=== PATIENT | female | born 1995 | race Caucasian/White ===

== ENCOUNTER → 2016-10-30 | Outpatient (CLI) | payer OTHER ==
[2016-10-30 15:57] LABS: CH 32.5; CHCM 34.2; HCT 40.1 % (34.0-46.0); HDW 2.54; HGB 13.4 gm/dL (11.4-16.0); MCH 31.9 pg (25.0-35.0); MCHC 33.4 g/dL (31.0-37.0); MCV 95.6 fL (80.0-100.0); Mean Platelet Volume 7.5; RBC 4.19 m/uL (3.80-5.40); RDW 12.6 % (11.5-15.5); WBC 10.7 k/uL (4.0-11.0)
== END | disposition home or self-care (01) ==
LOC: LABWHC1 14:29
PROVIDERS: ATTEND Obstetrics & Gynecology
DX: O26.812 Pregnancy related exhaustion and fatigue, second trimester (principal); Z3A.00 Weeks of gestation of pregnancy not specified
CPT/HCPCS: 36415; 82950; 84439; 84443; 85027

== ENCOUNTER → 2017-01-07 | Outpatient (CLI) | payer OTHER ==
--- NOTE | 2017-01-07 13:52 | US ---
EXAMINATION TYPE: US OB anatomy transabd DATE OF EXAM: 01/07/2017 1:10 PM COMPARISON: 1st trimester scan in pacs, prior anatomy scan done elsewhere, pt states no problems HISTORY: LGA TECHNIQUE: Transabdominal (TA) EXAM MEASUREMENTS: GESTATIONAL AGE / DATING Physician Established: (35 weeks/0 days) EDC: 02/11/2017 Dates by LMP: uncertain lmp Dates by First Scan: (35 weeks/0 days) EDC: 02/11/2017 Dates by Current Scan for: (34 weeks/6 days) EDC: 02/12/2017 SURVEY IUP: Single PLACENTA: Anterior PREVIA: No previa MIREILLE: 12.2 cm Normal CERVICAL LENGTH (transabdominal: norm > 3.0cm): 3.2 cm BIOMETRY PRESENTATION: Vertex LIE: Oblique BPD: 8.9 cm 35 weeks / 6 days HC: 31.6 cm 35 weeks / 3 days AC: 29.9 cm 33 weeks / 6 days FL: 6.6 cm 34 weeks / 1 days ESTIMATED WEIGHT IN GRAMS: 2394 grams ESTIMATED WEIGHT IN LBS/OZS: 5 lbs. 4 oz. WEIGHT PERCENTAGE BASED ON ESTABLISHED DATE: 27 % HC/AC: 1.06 FL/AC: 22 HEART RATE: 148 bpm RHYTHM: Normal ANATOMY SEEN (within normal limits): * * Cisterna Magna (< 1.1 cm) 0.5 cm * Cerebellum (varies with age) 4.8 cm Midline Falx Four Chamber Heart Stomach Nose / Lips Diaphragm Kidneys (bilateral) Bladder Cord Insert Three Vessel Cord Longitudinal Spine Transverse Spine ANATOMY NOT SEEN: Lateral Vent (< 1 cm) cm Arms (bilateral) Legs (bilateral) Situs Outflow tracts: LVOT/RVOT Choroid Plexus (bilateral) Cavus Septi Pellucidi viable iup, growth congruent with established dates, no abnormality seen on today's ultrasound, some exam limitations due to advanced age and lie IMPRESSION: CERDA FETUS PRESENT IN A VERTEX LIE WITH A GESTATIONAL AGE OF 34 WEEKS 6 DAYS +/- 3 WEEKS. ESTIMA IQRA DATE OF CONFINEMENT BASED ON THIS EXAMINATION IS 02/12/2017. PLEASE NOTE THAT THE MORPHOLOGIC EXAMINATION IS QUITE LIMITED.
== END | disposition home or self-care (01) ==
LOC: RADUSWWP 12:52
PROVIDERS: ATTEND Obstetrics & Gynecology
DX: O36.63X0 Maternal care for excessive fetal growth, third trimester, not applicable or unspecified (principal); Z3A.34 34 weeks gestation of pregnancy
CPT/HCPCS: 76811

== ENCOUNTER 2017-01-30 17:24 | Inpatient (IN) | payer OTHER ==
[2017-01-30] MEDS ORDERED: TERBUTALINE 1 MG/ML VIAL SQ PRN (19:19)
[2017-01-30] MEDS ORDERED: OXYTOCIN 10 UNIT/ML 1 ML VIAL IM PRN (19:19)
[2017-01-30] MEDS ORDERED: LIDOCAINE 1% (PF) 10 MG/ML (30 ML SDV) SQ PRN (19:19)
[2017-01-30] MEDS ORDERED: CARBOPROST TROMETHAMINE 250 MCG/ML 1 ML AMP IM PRN (19:19)
[2017-01-30] MEDS ORDERED: METHYLERGONOVINE 0.2 MG/ML 1 ML AMP IM PRN (19:19)
[2017-01-30] MEDS ORDERED: OXYTOCIN 30 UNITS/500 ML NS 30 UNIT in SALINE 1 500ML.BAG IV SCH (19:30)
[2017-01-30] MEDS ORDERED: LACTATED RINGERS 1,000 ML IV SCH (19:30)
[2017-01-30 19:57] LABS: Basophils # (A) 0.1 k/uL (0-0.2); Basophils % (A) 0 %; CH 32.2; CHCM 34.1; Eosinophils # (A) 0.1 k/uL (0-0.7); Eosinophils % (A) 0 %; HCT 41.3 % (34.0-46.0); HDW 2.63; HGB 13.8 gm/dL (11.4-16.0); Luc # (Auto) 0.55; Luc % (Auto) 4; Lymphocytes # (A) 2.4 k/uL (1.0-4.8); Lymphocytes % (A) 16 %; MCH 31.8 pg (25.0-35.0); MCHC 33.5 g/dL (31.0-37.0); MCV 94.9 fL (80.0-100.0); Mean Platelet Volume 7.8; Monocytes # (A) 0.6 k/uL (0-1.0); Monocytes % (A) 4 %; Neutrophils # (A) 10.9 k/uL (1.3-7.7); Neutrophils % (A) 75 %; RBC 4.35 m/uL (3.80-5.40); RDW 13.3 % (11.5-15.5); WBC 14.6 k/uL (4.0-11.0); WBC (Perox) 14.73
[2017-01-30] MEDS ORDERED: BUPIVACAINE (PF) 0.25% 30 ML VIAL ONE (20:28)
[2017-01-30] MEDS ORDERED: SODIUM CHLORIDE 0.9% 100 ML BAG ONE (20:28)
[2017-01-30] MEDS ORDERED: fentaNYL (PF) 50 MCG/ML 5 ML AMP ONE (20:28)
--- NOTE | 2017-01-30 20:41 | P.HPOB ---
History of Present Illness H&P Date: 01/30/17 Chief Complaint: contractions and decreased movement. This patient is a pleasant 21-year-old 1 para 0 female estimated date of confinement 02/11/2017 who presents with complaints of contractions throughout the day and decreased movement. Patient was seen in the office by Devi yesterday and was 2 cm dilated she is now 3-4 cm dilated thought to be in active labor. Patient's care is per Dr. Higgins. Review of Systems Constitutional: Denies chills, Denies fever Ears, nose, mouth and throat: Denies headache, Denies sore throat Cardiovascular: Denies chest pain, Denies shortness of breath Respiratory: Denies cough Gastrointestinal: Reports heartburn Genitourinary: Reports Menstruation: Reports amenorrhea Musculoskeletal: Denies myalgias Integumentary: Denies pruritus, Denies rash Neurological: Denies numbness, Denies weakness Psychiatric: Denies anxiety, Denies depression Past Medical History Past Medical History: No Reported History History of Any Multi-Drug Resistant Organisms: None Reported Past Surgical History: Adenoidectomy Past Anesthesia/Blood Transfusion Reactions: No Reported Reaction Past Psychological History: No Psychological Hx Reported Smoking Status: Current every day smoker Past Alcohol Use History: None Reported Past Drug Use History: None Reported Medications and Allergies Home Medications Medication Instructions Recorded Confirmed Type Pnv with Ca,No.72/Iron/FA 1 tab PO DAILY 12/16/16 01/30/17 History [ Plus Tablet] Allergies Allergy/AdvReac Type Severity Reaction Status Date / Time codeine Allergy Rash/Hives Verified 01/30/17 17:39 Exam - Vital Signs Vital signs: Vital Signs Temp Pulse Resp BP Pulse Ox 01/30/17 17:45 96.5 F L 102 H 20 138/69 97 Intake and Output 01/30/17 01/30/17 01/30/17 06:59 14:59 22:59 Other: Weight 75.296 kg Patient Weight 01/31/17 06:59 Weight 75.296 kg - OBG Physical Exam Abdomen: bowel sounds normal, no diffuse tenderness, no bruit present, no guarding noted, no hepatomegaly, no splenomegaly, no mass Vulva: both: normal Vagina: normal moisture, no discharge Cervix: cervix is 3-4 cm dilated -2 station. Results blood work shows she is A positive, rubella nonimmune, RPR is nonreactive, HIV is nonreactive, group B strep was negative. Ultrasounds have been normal. Result Diagrams: 01/30/17 19:30 Abnormal Lab Results - Last 24 Hours (Table) 01/30/17 Range/Units 19:30 WBC 14.6 H (4.0-11.0) k/uL Neutrophils # 10.9 H (1.3-7.7) k/uL Assessment and Plan (1) Third trimester Narrative/Plan: This is a 21-year-old 1 para 0 female 38-2/7 weeks gestation who is admitted in active labor. Plan is anticipate normal vaginal delivery. Status: Acute (2) Normal labor Status: Acute
--- NOTE | 2017-01-30 20:45 | P.MSEPDOC ---
Presenting Problems - Arrival Data Date of Arrival on Unit: 01/30/17 Time of Arrival on Unit: 17:24 Mode of Transport: Ambulatory - Complaint OB-Reason for Admission/Chief Complaint: Decreased Movement Medical History - Information : 1 Para: 0 Term: 0 : 0 Abortions: Spontaneous or Elective: 0 Number of Living Children: 0 - Gestational Age Expected Date of Delivery: 02/11/17 Gestational Age by YIMI (wks/days): 38 Weeks and 2 Days - History Complications: Smoker Review of Systems - Review of Systems Constitutional: No problems Breast: No problems ENT: No problems Cardiovascular: No problems Respiratory: No problems Gastrointestinal: No problems Genitourinary: No problems Musculoskeletal: No problems Neurological: No problems Skin: No problems Vital Signs - Temperature Temperature: 96.5 F Temperature Source: Skin - Pulse Brachial Pulse Rate: 102 Pulse Assessment Method: Automatic Cuff - Respirations Respiratory Rate: 20 Oxygen Delivery Method: Room Air O2 Sat by Pulse Oximetry: 97 - Blood Pressure Right Arm Blood Pressure: 138/69 Blood Pressure Mean: 92 Blood Pressure Source: Automatic Cuff Medical Screen Scoring (Pre) - Cervical Exam Dilation: 1-3 cm = 1 Effacement: More than 50% = 2 Membranes: Intact - Uterine Contractions Frequency: > 5 minutes apart = 1 Duration: > 40 seconds = 2 - Maternal Vital Signs Maternal Temperature: N/A Maternal Blood Pressure: N/A Signs of Preeclampsia: N/A Maternal Respirations: N/A - Maternal Trauma Maternal Trauma: N/A - Assessment Baseline FHR: 150 Heart Rate - NICHD Category: Category I (Normal) = 0 - Total Score Total Score (Pre): 6 Physician Notification (Pre) - Physician Notified Physician Notified Date: 01/30/17 Physician Notified Time: 18:45 Physician/Practitioner Notifed:: dr mcgrath Spoke With: dr mcgrath Disposition - Disposition OB Disposition: Admit, LDRP Suite Transferred to:: st 14 I agree with the RN Medical Screening Exam: Yes Risk & Benefit of care provided described in d/c instruction: Yes Diagnosis: 38 WEEKS GESTATION OF
[2017-01-30] MEDS ORDERED: BUPIVACAINE (PF) 0.25% 25 ML, fentaNYL (PF) 200 MCG in SODIUM CHLORIDE 0.9% 71 ML EPIDURAL ONE (20:46)
[2017-01-30] MEDS ORDERED: SUCCINYLCHOLINE CHLORIDE 100 MG/5 ML SYR IV ONE (21:03)
[2017-01-30] MEDS ORDERED: KETOROLAC 30 MG/ML 1 ML VIAL ONE (21:03)
[2017-01-30] MEDS ORDERED: DEXAMETHASONE SOD PHOS (MDV) 100 MG/10 ML VIAL ONE (21:03)
[2017-01-30] MEDS ORDERED: MIDAZOLAM 2 MG/2 ML VIAL ONE (21:03)
[2017-01-30] MEDS ORDERED: ONDANSETRON 4 MG/2 ML VIAL ONE (21:03)
[2017-01-30] MEDS ORDERED: PROPOFOL 10 MG/ML 20 ML VIAL IV ONE (21:03)
[2017-01-30] MEDS ORDERED: OXYTOCIN 10 UNIT/ML 1 ML VIAL IM ONE (21:03)
[2017-01-30] MEDS ORDERED: ceFAZolin 1,000 MG VIAL ONE (21:03)
[2017-01-30] MEDS ORDERED: fentaNYL (PF) 50 MCG/ML 2 ML AMP ONE (21:03)
[2017-01-30] MEDS ORDERED: diphenhydrAMINE 25 MG CAP PO PRN (21:50)
[2017-01-30] MEDS ORDERED: diphenhydrAMINE 50 MG/ML 1 ML VIAL IVP PRN (21:50)
[2017-01-30] MEDS ORDERED: METOCLOPRAMIDE 5 MG/ML 2 ML VIAL IVP PRN (21:50)
[2017-01-30] MEDS ORDERED: SIMETHICONE 80 MG CHEWABLE PO PRN (21:50)
[2017-01-30] MEDS ORDERED: ACETAMINOPHEN TAB 325 MG TAB PO PRN (21:50)
[2017-01-30] MEDS ORDERED: ONDANSETRON 4 MG/2 ML VIAL IVP PRN (21:50)
[2017-01-30] MEDS ORDERED: KETOROLAC 30 MG/ML 1 ML VIAL IVP PRN (21:50)
[2017-01-30] MEDS ORDERED: HYDROmorphone PCA 5 MG/25 ML SYRINGE IV PRN (21:50)
[2017-01-30] MEDS ORDERED: NALOXONE 0.4 MG/ML 1 ML VIAL IV PRN (21:50)
[2017-01-30] MEDS ORDERED: MEASLES-MUMPS-RUBELLA VACC/PF 12,500 UNIT/0.5 ML VIAL SQ ONE (21:50)
[2017-01-30] MEDS ORDERED: ZOLPIDEM 5 MG TAB PO PRN (21:50)
--- NOTE | 2017-01-30 21:52 | XR ---
EXAMINATION TYPE: XR abdomen 1V DATE OF EXAM: 01/30/2017 9:45 PM COMPARISON: NONE HISTORY: Possible foreign body TECHNIQUE: Single view FINDINGS: There are skin nasim. Bowel gas pattern is normal. There is no sign of intestinal obstruc tion. There is no sign of a radiopaque foreign body. Fecal pattern is normal. IMPRESSION: No sign of a foreign body. Nonacute abdomen.
--- NOTE | 2017-01-30 22:08 | P.OP ---
Date of Procedure: 01/30/17 Preoperative Diagnosis: 1:38-2/7 weeks gestation. #2: Labor #3: Nonreassuring heart tones remote from delivery. Postoperative Diagnosis: #1: Same. #2: Occult cord prolapse. Procedure(s) Performed: Emergent low transverse section Anesthesia: JOLEEN Surgeon: Hamilton Ervin Estimated Blood Loss (ml): 500 Pathology: other (Placenta) Condition: stable Disposition: floor Indications for Procedure: Please see dictated H&P for intimate details of this patient's admission. Brief summary this is a 21-year-old 1 para 0 female 38-2/7 weeks gestation who called the office earlier today with complaints of decreased movement. Patient is admitted to labor and delivery and found to be in early labor. Patient artificial rupture membranes for clear fluid at about 4-5 cm dilated. Patient an epidural placed at this time. Patient began having bradycardic episodes that did not respond to position changes and heart tones remained in the 80s to 90s without resolution. At this time I recommend the patient proceed with emergent section for delivery. Operative Findings: This is a vigorous viable male infant Apgars 9 and 9 delivery time is 2110 hrs. , a piece of the umbilical cord was found right against the side of the head. This is consistent with an occult cord prolapse. Description of Procedure: this patient has a Bhatia catheter placed to straight drain. She's quickly taken to the operating room where she is laid in the supine position. She has abdominal prep and drape. Patient goes under rapid sequence general endotracheal anesthesia. With a adequate level of anesthesia, scalpel is taken and a Pfannenstiel skin incision is made. A second scalpel is taken down the fascia and the fascia scored with scalpel. Fascial incision extended bilaterally using the Alvarez scissors. Fascia is dissected off the rectus muscles sharply. Rectus muscles are the peritoneum identified and entered sharply. Peritoneal incision was bluntly extended. The bladder blade is placed. Bladder peritoneum was taken off the lower uterine segment sharply. Bladder blade is placed. Scalpels taken low transverse uterine incision is made and using a hemostat I into the uterine cavity bluntly. This incision is extended bluntly. Immediately I note a piece of the umbilical cord that is trapped against the head. The 's head is then guided through the incision. There is no evidence of nuchal cord. Mouth and nares are bulb suctioned. There delivery rest this 's body. This is a vigorous viable male Apgars are 9 and 9 delivery time is 2110 hrs. After delivery of the the umbilical cord is doubly clamped and cut is handed off to the nurses in attendance. The placenta is then manually extracted intact. The uterus is then externalized. Uterine incision demarcated with Mills clamps. Uterine incision then closed using 0 Vicryl running locked fashion 2 layers. The bladder peritoneum was then reapproximated using a 3-0 Vicryl. Excellent hemostasis is noted. Uterus tubes and ovaries appear normal for term gestation. Excess fluid is removed from the abdomen and pelvis. Uterus placed back into the abdomen. Parietal peritoneum was then closed using a 3-0 Vicryl running fashion. Rectus muscles reapproximated using 0 Vicryl interrupted fashion. Fascia is then closed using 0 PDS in a running fashion. Fascial incision is intact and hemostatic. Subcutaneous tissues and closed using a 3-0 Vicryl. Skin is and closed using nasim. Counts are correct at this time however we did not have time to do a preoperative count due to the emergent nature of the surgery, therefore at this time a flatplate of the abdomen is done and there is no evidence of any retained instruments or sponges. At this point the patient is awakened from anesthesia and sterile dressing is applied. There are no complications. Infant and mother are stable delivery room.
[2017-01-31 00:22] VITALS: BMI 28.3
[2017-01-31] MEDS: LACTATED RINGERS 1,000 ML IV SCH ×3 (05:00→12:59)
[2017-01-31] MEDS ORDERED: HYDROcodone/APAP 5-325MG 1 EACH TAB PO PRN (05:41)
--- NOTE | 2017-01-31 05:43 | P.PNOBGPC ---
Subjective - Subjective Patient reports: Reports appetite normal, Reports voiding normally, Reports pain well controlled, Reports ambulating normally : doing well Objective - Vital Signs Latest vital signs: Vital Signs Temp Pulse Resp BP Pulse Ox 01/31/17 04:00 98.5 F 73 16 115/68 01/31/17 00:00 98.0 F 99 18 127/55 01/30/17 23:50 98.1 F 96 16 120/59 01/30/17 23:15 98.1 F 90 16 126/66 01/30/17 22:45 75 16 125/64 01/30/17 22:30 98.1 F 96 16 124/62 01/30/17 22:15 92 16 122/62 01/30/17 22:00 97.7 F 108 H 20 117/57 01/30/17 21:45 96.4 F L 141 H 18 129/60 01/30/17 20:45 96.5 F L 102 H 20 138/69 97 01/30/17 20:00 78 18 135/83 01/30/17 17:45 96.5 F L 102 H 20 138/69 97 Intake and Output 01/30/17 01/30/17 01/31/17 14:59 22:59 06:59 Intake Total 620 520 Output Total 500 Balance 120 520 Intake: Intake, IV Titration 500 400 Amount Bupivacaine (Pf) 0.25% 25 400 ml fentaNYL (PF) 200 mcg In Sodium Chloride 0.9% 71 ml @ Titrate EPIDURAL ONCE ONE Rx#:[id number] Oxytocin 30 Units/500 ml 500 Ns 30 unit In Saline 1 500ml.bag @ 1 MILLIUNIT/ MIN 1 mls/hr IV .[facility] Rx#:[id number] Oral 120 120 Output: Estimated Blood Loss 500 Other: Weight 74.843 kg Patient Weight 01/31/17 06:59 Weight 74.843 kg - Exam Lungs: bilateral: normal Chest: Normal S1, Normal S2 Extremities: Present: normal Abdomen: Present: normal appearance, soft. Absent: distention, tenderness Incision: Present: normal, dry, intact Uterus: Present: normal, firm - Labs Labs: Abnormal Lab Results - Last 24 Hours (Table) 01/30/17 Range/Units 19:30 WBC 14.6 H (4.0-11.0) k/uL Neutrophils # 10.9 H (1.3-7.7) k/uL Assessment and Plan (1) Third trimester Narrative/Plan: Postoperative day #1. Patient is resting without complaints. Vital signs are stable and she is afebrile. Uterus is firm nontender and her incision is intact and dry. CBC is pending at this time. My impression is a normal postoperative course. Plan is to advance her diet, check a CBC, ambulate, and allow the patient to shower. Current Visit: Yes Status: Acute Code(s): Z33.1 - STATE, INCIDENTAL SNOMED Code(s): 83155779 (2) Normal labor Current Visit: Yes Status: Acute Code(s): O80 - ENCOUNTER FOR FULL-TERM UNCOMPLICATED DELIVERY; Z37.9 - OUTCOME OF DELIVERY, UNSPECIFIED SNOMED Code(s ): 59316446
[2017-01-31 07:40] LABS: Basophils % (A) 0 %; CH 32.1; CHCM 34.3; Eosinophils % (A) 0 %; HDW 2.67; HGB 12.5 gm/dL (11.4-16.0); Luc # (Auto) 0.55; Luc % (Auto) 3; Lymphocytes % (A) 5 %; MCH 32.8 pg (25.0-35.0); MCHC 34.9 g/dL (31.0-37.0); Mean Platelet Volume 7.7; Monocytes # (A) 0.8 k/uL (0-1.0); Monocytes % (A) 4 %; Neutrophils # (A) 17.7 k/uL (1.3-7.7); Neutrophils % (A) 88 %; RBC 3.82 m/uL (3.80-5.40); RDW 12.7 % (11.5-15.5); WBC 20.1 k/uL (4.0-11.0); WBC (Perox) 21.07
[2017-01-31] MEDS: ceFAZolin 2 GM in SODIUM CHLORIDE 0.9% 100 ML IVPB SCH ×3 (07:49→10:00)
[2017-01-31 08:32] LABS: Manual Review Performed
[2017-01-31 08:36] LABS: RBC Morphology Normal
[2017-01-31] MEDS: SENNOSIDES-DOCUSATE SODIUM 1 EACH TAB PO SCH ×2 (08:48→21:03)
[2017-01-31] MEDS: HYDROcodone/APAP 5-325MG 1 EACH TAB PO PRN ×3 (12:39→23:02)
[2017-02-01] MEDS: LACTATED RINGERS 1,000 ML IV SCH (00:05)
[2017-02-01] MEDS: IBUPROFEN 600 MG TAB PO PRN ×3 (02:28→18:15)
--- NOTE | 2017-02-01 05:39 | P.PNOBGPC ---
Subjective - Subjective Patient reports: Reports appetite normal, Reports voiding normally, Reports pain well controlled, Reports ambulating normally : doing well Objective - Vital Signs Latest vital signs: Vital Signs Temp Pulse Resp BP Pulse Ox 02/01/17 00:00 97.4 F L 66 16 119/69 98 01/31/17 16:00 98 F 80 16 105/57 97 01/31/17 11:55 98.0 F 75 16 122/64 97 01/31/17 08:13 97.6 F 65 12 106/61 96 Intake and Output 01/31/17 01/31/17 02/01/17 14:59 22:59 06:59 Output Total 1900 Balance -1900 Output: Urine 1900 Other: # Voids 1 2 - Exam Lungs: bilateral: normal Chest: Normal S1, Normal S2 Extremities: Present: normal Abdomen: Present: normal appearance, soft. Absent: distention, tenderness Incision: Present: normal, dry, intact Uterus: Present: normal, firm - Labs Labs: Abnormal Lab Results - Last 24 Hours (Table) 01/31/17 Range/Units 06:35 WBC 20.1 H (4.0-11.0) k/uL Neutrophils # 17.7 H (1.3-7.7) k/uL Assessment and Plan (1) Third trimester Narrative/Plan: day #2. Patient is resting without complaints. Vital signs are stable she's afebrile. Uterus is firm nontender her incision is intact and dry. Patient is tolerating regular diet. Patient is urinating without difficulty. Plan today is to continue routine postoperative care and most likely discharge home tomorrow. Current Visit: Yes Status: Acute Code(s): Z33.1 - STATE, INCIDENTAL SNOMED Code(s): 82141578 (2) Normal labor Current Visit: Yes Status: Acute Code(s): O80 - ENCOUNTER FOR FULL-TERM UNCOMPLICATED DELIVERY; Z37.9 - OUTCOME OF DELIVERY, UNSPECIFIED SNOMED Code(s ): 36914483
[2017-02-01] MEDS: SENNOSIDES-DOCUSATE SODIUM 1 EACH TAB PO SCH ×2 (07:43→19:52)
[2017-02-01] MEDS: HYDROcodone/APAP 5-325MG 1 EACH TAB PO PRN ×3 (07:46→19:52)
[2017-02-01 08:32] LABS: Basophils % (A) 0 %; CH 31.9; CHCM 33.7; Eosinophils # (A) 0.1 k/uL (0-0.7); Eosinophils % (A) 1 %; HCT 36.3 % (34.0-46.0); HDW 2.58; HGB 11.8 gm/dL (11.4-16.0); Luc # (Auto) 0.49; Luc % (Auto) 4; Lymphocytes # (A) 2.3 k/uL (1.0-4.8); Lymphocytes % (A) 18 %; MCHC 32.5 g/dL (31.0-37.0); MCV 95.2 fL (80.0-100.0); Mean Platelet Volume 7.4; Monocytes # (A) 0.7 k/uL (0-1.0); Monocytes % (A) 6 %; Neutrophils # (A) 9.5 k/uL (1.3-7.7); Neutrophils % (A) 72 %; RBC 3.81 m/uL (3.80-5.40); WBC 13.1 k/uL (4.0-11.0); WBC (Perox) 13.97
[2017-02-02] MEDS: IBUPROFEN 600 MG TAB PO PRN ×2 (03:24→11:05)
--- NOTE | 2017-02-02 06:31 | P.PNOBGPC ---
Subjective - Subjective Patient reports: Reports appetite normal, Reports voiding normally, Reports pain well controlled, Reports ambulating normally : doing well Objective - Vital Signs Latest vital signs: Vital Signs Temp Pulse Resp BP BP Pulse Ox 02/02/17 00:00 98.5 F 78 16 111/52 02/01/17 16:00 98.3 F 78 16 118/55 96 02/01/17 12:00 97 F L 81 18 120/59 97 02/01/17 08:00 98.0 F 78 14 113/62 97 - Exam Lungs: bilateral: normal Chest: Normal S1, Normal S2 Extremities: Present: normal Abdomen: Present: normal appearance, soft. Absent: distention, tenderness Incision: Present: normal, dry, intact Uterus: Present: normal, firm - Labs Labs: Abnormal Lab Results - Last 24 Hours (Table) 02/01/17 Range/Units 08:06 WBC 13.1 H (4.0-11.0) k/uL Neutrophils # 9.5 H (1.3-7.7) k/uL Assessment and Plan (1) Third trimester Narrative/Plan: Postoperative day #3. Patient is resting without complaints. Vital signs are stable she is afebrile. Uterus is firm nontender she's having normal lochia. Incision is intact and dry. CBC is normal. My impression is this patient is having an normal course. She appears to be stable for discharge home. We'll continue routine care and discharge home later today. Current Visit: Yes Status: Acute Code(s): Z33.1 - STATE, INCIDENTAL SNOMED Code(s): 57723141 (2) Normal labor Current Visit: Yes Status: Acute Code(s): O80 - ENCOUNTER FOR FULL-TERM UNCOMPLICATED DELIVERY; Z37.9 - OUTCOME OF DELIVERY, UNSPECIFIED SNOMED Code(s ): 19736952
--- NOTE | 2017-02-02 06:33 | P.DS ---
Providers Date of admission: 01/30/17 19:08 Expected date of discharge: 02/02/17 Attending physician: Hamilton Ervin Primary care physician: Estefanía Higgins - Discharge Diagnosis(es) (1) Third trimester Current Visit: Yes Status: Acute (2) Normal labor Current Visit: Yes Status: Acute Hospital Course: Please see dictated H&P in this patient's admission. Brief summary this is a pleasant 21-year-old 1 para 0 female 38-2/7 weeks gestation who is admitted to labor and delivery with complaints of decreased movement and contractions. Patient subsequently underwent a emergent low transverse section for nonreassuring heart tones. Postoperatively patient did well and on postoperative 3 felt be stable for discharge home follow up with Dr. Higgins in 1 week. Procedures: Primary low transverse section. Patient Condition at Discharge: Good Plan - Discharge Summary New Discharge Prescriptions: HYDROcodone/APAP 5-325MG [[place] 5-325] 1 - 2 each PO Q4HR PRN #40 tab PRN Reason: Pain Ibuprofen [Motrin] 600 mg PO Q6HR PRN #40 tab PRN Reason: Mild Pain Or Fever >= 100.5 Discharge Medication List Pnv with Ca,No.72/Iron/FA [ Plus Tablet] 1 tab PO DAILY 12/16/16 [ History] HYDROcodone/APAP 5-325MG [[place] 5-325] 1 - 2 each PO Q4HR PRN #40 tab 02/01/17 [ Rx] Ibuprofen [Motrin] 600 mg PO Q6HR PRN #40 tab 02/01/17 [Rx] Follow up Appointment(s)/Referral(s): Estefanía Higgins DO [Primary Care Provider] - 02/07/17 1:30 pm (Patient also has a check with Dr. Higgins on March 15 at 10:45 AM.) Patient Instructions/Handouts: (DC) Activity/Diet/Wound Care/Special Instructions: No heavy lifting or strenuous activity for 6 weeks. No intercourse or anything per vagina for 6 weeks. Please call if any fever, chills, excessive vaginal bleeding, and/or abdominal pain. Discharge Disposition: HOME SELF-CARE
[2017-02-02] MEDS: HYDROcodone/APAP 5-325MG 1 EACH TAB PO PRN (06:41)
[2017-02-02] MEDS: SENNOSIDES-DOCUSATE SODIUM 1 EACH TAB PO SCH (11:04)
[2017-02-02 12:11] VITALS: RESP 20
[2017-02-02 13:26] VITALS: BP 119/57; PULSE 86; TEMP 97.7
== END 2017-02-02 11:45 | disposition home or self-care (01) | DRG 766 ==
LOC: FBPOP 17:24 → 4FBP 19:08
PROVIDERS: ADMIT Obstetrics & Gynecology; ATTEND Obstetrics & Gynecology
PROC: 3E0134Z Introduction of Serum, Toxoid and Vaccine into Subcutaneous Tissue, Percutaneous Approach (ICD-10-PCS; 2017-01-30)
PROC: 10D00Z1 Extraction of Products of Conception, Low, Open Approach (ICD-10-PCS; principal; 2017-01-30 21:00)
DX: O36.8190 Decreased fetal movements, unspecified trimester, not applicable or unspecified (principal); F17.200 Nicotine dependence, unspecified, uncomplicated; O69.0XX0 Labor and delivery complicated by prolapse of cord, not applicable or unspecified; O76 Abnormality in fetal heart rate and rhythm complicating labor and delivery; O99.334 Smoking (tobacco) complicating childbirth; Z3A.38 38 weeks gestation of pregnancy; Z37.0 Single live birth; Z23 Encounter for immunization
CPT/HCPCS: 59025; 74000; 80306; 85025; 88307; 90471; 90707; 99213

== ENCOUNTER 2024-08-19 23:48 | Emergency (ER) | payer OTHER ==
[2024-08-19 23:56] VITALS: TEMP 98.3
[2024-08-20] MEDS: SODIUM CHLORIDE 0.9% 1,000 ML IV ONE (00:41)
[2024-08-20] MEDS: ONDANSETRON 4 MG/2 ML VIAL IVP STA (00:43)
[2024-08-20] MEDS: KETOROLAC 15 MG/ML 1 ML VIAL IVP STA (00:46)
[2024-08-20] MEDS: ORPHENADRINE 30 MG/ML 2 ML VIAL IVP STA (02:30)
[2024-08-20] MEDS: LORazepam 2 MG/ML INJ IV STA (03:38)
--- NOTE | 2024-08-20 04:03 | ED ---
General Adult HPI - General Chief complaint: Recheck/Abnormal Lab/Rx Stated complaint: Weakness Time Seen by Provider: 08/20/24 00:02 Source: patient Mode of arrival: ambulatory Limitations: no limitations - History of Present Illness Initial comments: 29-year-old female presenting with chief complaint of withdrawals from Kratom. Patient was taking large amounts of the substance for the past 3 months. She found out that the substances similar to an opioid and stopped taking it 2 days ago. Patient states that "everything hurts". She is having diarrhea as well. Some nausea no vomiting. No chest pain or difficulty breathing. No fevers. - Related Data Home Medications Medication Instructions Recorded Confirmed Pnv,Calcium 72/Iron/Folic Acid 1 tab PO DAILY 12/16/16 01/30/17 [ Plus Tablet] Previous Rx's Medication Instructions Recorded HYDROcodone/APAP 5-325MG [[place] 1 - 2 each PO Q4HR PRN #40 tab 02/01/17 5-325] Ibuprofen [Motrin] 600 mg PO Q6HR PRN #40 tab 02/01/17 hydrOXYzine HCL 25 mg PO Q8HR PRN #10 tab 08/20/24 Allergies Allergy/AdvReac Type Severity Reaction Status Date / Time codeine Allergy Rash/Hives Verified 08/19/24 23:51 Review of Systems ROS Statement: Those systems with pertinent positive or pertinent negative responses have been documented in the HPI. ROS Other: All systems not noted in ROS Statement are negative. Past Medical History Past Medical History: No Reported History History of Any Multi-Drug Resistant Organisms: None Reported Past Surgical History: Adenoidectomy, Section Past Anesthesia/Blood Transfusion Reactions: No Reported Reaction Past Psychological History: No Psychological Hx Reported Smoking Status: Vaper Past Alcohol Use History: None Reported, Occasional Past Drug Use History: Opiates General Exam Limitations: no limitations General appearance: alert, in no apparent distress Head exam: Present: atraumatic, normocephalic, normal inspection Eye exam: Present: normal appearance, EOMI Neck exam: Present: normal inspection. Absent: meningismus Respiratory exam: Present: normal lung sounds bilaterally. Absent: respiratory distress, wheezes, rales, rhonchi, stridor Cardiovascular Exam: Present: regular rate, normal rhythm, normal heart sounds. Absent: systolic murmur, diastolic murmur, rubs, gallop, clicks Neurological exam: Present: alert, oriented X3 Psychiatric exam: Present: normal affect, normal mood. Absent: homicidal ideation, suicidal ideation Skin exam: Present: warm, dry Course Vital Signs 08/19/24 23:51 Temperature 98.3 F Pulse Rate 97 Respiratory 16 Rate Blood Pressure 139/90 O2 Sat by Pulse 98 Oximetry Medical Decision Making - Medical Decision Making Was pt. sent in by a medical professional or institution (JAIME Sheridan, HYDRAULIC LIFT DRIVER, urgent care, hospital, or assisted...) When possible be specific @ -No Did you speak to anyone other than the patient for history (EMS, parent, family, police, friend...)? What history was obtained from this source @ -No Did you review nursing and triage notes (agree or disagree)? Why? @ -I reviewed and agree with nursing and triage notes Were old charts reviewed (outside hosp., previous admission, EMS record, old EKG, old radiological studies, urgent care reports/EKG's, assisted records)? Report findings @ -No old charts were reviewed Differential Diagnosis (chest pain, altered mental status, abdominal pain women, abdominal pain men, vaginal bleeding, weakness, fever, dyspnea, syncope, headache, dizziness, GI bleed, back pain, seizure, CVA, palpatations, mental health, musculoskeletal)? @ -Differential includes withdrawal syndrome, viral syndrome, mononucleosis, this is not an all-inclusive list EKG interpreted by me (3pts min.). @ -As above X-rays interpreted by me (1pt min.). @ -None done CT interpreted by me (1pt min.). @ -None done U/S interpreted by me (1pt. min.). @ -None done What testing was considered but not performed or refused? (CT, X-rays, U/S, labs)? Why? @ -None What meds were considered but not given or refused? Why? @ -None Did you discuss the management of the patient with other professionals (professionals i.e. JAIME Sheridan, HYDRAULIC LIFT DRIVER, lab, RT, psych nurse, community mental health social worker, diversified crops i farmworker, teacher, title officer, rn case management)? Give summary @ -No Was smoking cessation discussed for >3mins.? @ -No Was critical care preformed (if so, how long)? @ -No Were there social determinants of health that impacted care today? How? (Homelessness, low income, unemployed, alcoholism, drug addiction, transportation, low edu. Level, literacy, decrease access to med. care, care home, rehab)? @ -No Was there de-escalation of care discussed even if they declined (Discuss DNR or withdrawal of care, Hospice)? DNR status @ -No What co-morbidities impacted this encounter? (DM, HTN, Smoking, COPD, CAD, Cancer, CVA, ARF, Chemo, Hep., AIDS, mental health diagnosis, sleep apnea, morbid obesity)? @ -None Was patient admitted / discharged? Hospital course, mention meds given and route, prescriptions, significant lab abnormalities, going to OR and other pertinent info. @ -29-year-old female presenting with chief complaint of withdrawals. She was taking large amounts of kratom for the past 3 months and stopped 2 days ago when she found out that it is similar to opioid. She now hurts all over and is having diarrhea. History and physical examination are conducted. Patient is hydrated with IV fluids and given medication for pain, nausea, and anxiety. On reassessment she reports improvement in her symptoms. Provided with hydroxyzine for home to help with the withdrawal symptoms. Discharged. Follow-up with PCP. Report back to ER with any new or worsening symptoms. Discussed return parameters and answered all questions. Patient conveyed verbal understanding and agreed to the plan. I discussed this case in detail with my attending Dr. Will Undiagnosed new problem with uncertain prognosis? @ -No Drug Therapy requiring intensive monitoring for toxicity (Heparin, Nitro, Insulin, Cardizem)? @ -No Were any procedures done? @ -No Diagnosis/symptom? @ -Withdrawal syndrome Acute, or Chronic, or Acute on Chronic? @ -Acute Uncomplicated (without systemic symptoms) or Complicated (systemic symptoms)? @ -Complicated Side effects of treatment? @ -No Exacerbation, Progression, or Severe Exacerbation? @ -No Poses a threat to life or bodily function? How? (Chest pain, [place], PR, pneumonia, PE, COPD, DKA, ARF, appy, cholecystitis, CVA, Diverticulitis, Homicidal, Suicidal, threat to staff... and all critical care pts) @ -No Disposition Clinical Impression: Withdrawal syndrome Disposition: HOME SELF-CARE Condition: Fair Instructions (If sedation given, give patient instructions): Opioid Withdrawal (ED) Additional Instructions: Follow-up with your PCP. Report back to ER with any new or worsening symptoms. Hydroxyzine may cause drowsiness do not take before driving or operating heavy machinery Prescriptions: hydrOXYzine HCL 25 mg PO Q8HR PRN #10 tab PRN Reason: Anxiety Is patient prescribed a controlled substance at d/c from ED?: No Referrals: Moe Bravo DO [Primary Care Provider] - 1-2 days Time of Disposition: 04:03
[2024-08-20 05:34] VITALS: BP 116/69; PULSE 79; RESP 18
== END 2024-08-20 05:34 | disposition home or self-care (01) ==
LOC: EC 23:48
DX: F19.239 Other psychoactive substance dependence with withdrawal, unspecified (principal); Z88.5 Allergy status to narcotic agent; F17.290 Nicotine dependence, other tobacco product, uncomplicated
CPT/HCPCS: 99283; 96374; 96375 ×3; 96361 ×2; J2060; J2360; J2405; J1885